=== PATIENT | male | born 1960 | race Caucasian/White ===

== ENCOUNTER 2024-11-18 21:07 | Emergency (ER) | payer MEDICARE, OTHER ==
[~2024-11-18] VITALS: Ht 177.8 cm; Wt 97.3 kg
[2024-11-18 21:22] VITALS: BP 124/64; TEMP 97.6; O2SAT 95
[2024-11-18] MEDS ORDERED: REPA140I2 SC (21:38)
[2024-11-18] MEDS ORDERED: LISI10TA22 PO (21:38)
[2024-11-19] MEDS ORDERED: AMOX875T2 PO (01:04)
[2024-11-19] MEDS: AUGMENTIN 875 MG TAB PO ONE (01:43)
[2024-11-19] MEDS: TETANUS/DIPHTH/ACEL. PERTUSSIS 0.5 ML SYR IM.IMMUN ONE (01:44)
== END 2024-11-19 02:21 | disposition home or self-care (01) ==
LOC: M ED 21:07 → EDBD 21:07 → M ED 11-19 02:21
DX: S61.451A Open bite of right hand, initial encounter (principal); S40.811A Abrasion of right upper arm, initial encounter; S40.812A Abrasion of left upper arm, initial encounter; W55.03XA Scratched by cat, initial encounter; W55.01XA Bitten by cat, initial encounter; Y92.009 Unspecified place in unspecified non-institutional (private) residence as the place of occurrence of the external cause; Y93.9 Activity, unspecified; Y99.9 Unspecified external cause status; I10 Essential (primary) hypertension